=== PATIENT | female | born 2000 | race Caucasian/White ===

== ENCOUNTER 2018-01-29 23:14 | Emergency (ER) | payer OTHER ==
[2018-01-29 23:18] VITALS: BP 157/93; PULSE 108; RESP 20; TEMP 97.4; O2SAT 99
[2018-01-30] MEDS ORDERED: traMADol HCL 50 MG TAB PO ONE
[2018-01-30] MEDS ORDERED: KETOROLAC TROMETHAMINE 60 MG/2 ML (IM) VIAL IM ONE
--- NOTE | 2018-01-30 00:06 | PD ---
HPI . Abdominal pain Chief Complaint: Abdominal Pain Time Seen by Provider: 23:58 Travel History International Travel<30 days: No Contact w/Intl Traveler<30days: No Traveled to known affect area: No History of Present Illness HPI Patient presents with chief complaint of abdominal pain which started acutely 2 hours prior to presentation. Pain is severe and is exacerbated by movement and walking. She denies any associated symptoms such as nausea, vomiting, diarrhea , urinary tract symptoms, vaginal discharge or dyspareunia. She does state that she took Plan B this morning. She has eaten well today up until the time that the pain started 2 hours ago. She has not taken anything for the pain. [facility] Past Medical History Medical History: Denies Significant Hx Diminished Hearing: No Immunizations Current: Yes ?: Unknown LMP: 01/14/18 Past Surgical History Abdominal Surgery: Yes Social History Alcohol Use: Yes Tobacco Use: No Substance Use: No Allergies-Medications (Allergen,Severity, Reaction): Coded Allergies: Penicillins (Verified Allergy, Severe, 01/29/18) Review of Systems Except as stated in HPI: all other systems reviewed are Neg Physical Exam Narrative GENERAL: The patient is screaming loudly and is being carried by her boyfriend. The boyfriend actually picked her up to move her to the end of the bed for a pelvic exam. SKIN: warm/dry. HEAD: Normocephalic. Atraumatic. EYES: Pupils equal and round. No scleral icterus. No injection or drainage. ENT: No nasal bleeding or discharge. Mucous membranes pink and moist. NECK: Trachea midline. Full range of motion without pain.. CARDIOVASCULAR: Mild tachycardia. RESPIRATORY: No accessory muscle use. GASTROINTESTINAL: Diffuse abdominal tenderness. : Normal female. No discharge noted in the vaginal vault. It is difficult to determine whether or not she has any cervical motion tenderness or adnexal tenderness because she has been screaming continuously. MUSCULOSKELETAL: No obvious deformities. NEUROLOGICAL: Awake and alert. No obvious cranial nerve deficits. Motor grossly within normal limits. Normal speech. PSYCHIATRIC: Histrionic. Data Data Last Documented VS Vital Signs Date Time Temp Pulse Resp B/P (MAP) Pulse Ox O2 Delivery O2 Flow Rate FiO2 01/29/18 23:18 97.4 108 20 157/93 (114) 99 Orders Orders Gc And Chlamydia Pcr (01/29/18 23:58) Wet Prep Profile (01/29/18 23:58) Urinalysis - C+S If Indicated (01/29/18 23:58) Ed Urine Pregnancytest Poc (01/29/18 23:58) Ketorolac Inj (Toradol Inj) (01/30/18 00:00) Tramadol (Ultram) (01/30/18 00:00) Labs Laboratory Tests Test 01/29/18 23:59 01/30/18 00:00 Clue Cells (Wet Prep) NONE SEEN Vaginal Trichomonas (Wet Prep) NONE SEEN Vaginal Yeast (Wet Prep) NONE SEEN Urine Color LIGHT-YELLOW Urine Turbidity CLOUDY Urine pH 8.0 Urine Specific [place] 1.013 Urine Protein NEG mg/dL Urine Glucose (UA) NEG mg/dL Urine Ketones NEG mg/dL Urine Occult Blood NEG Urine Nitrite NEG Urine Bilirubin NEG Urine Urobilinogen LESS THAN 2.0 MG/DL Urine Leukocyte Esterase NEG Urine RBC LESS THAN 1 /hpf Urine Squamous Epithelial Cells 4 /hpf Urine Amorphous Sediment RARE Microscopic Urinalysis Comment CULT NOT INDICATED MDM Medical Decision Making Medical Screen Exam Complete: Yes Emergency Medical Condition: Yes Differential Diagnosis Differential diagnosis of abdominal pain includes but is not limited to gastritis, pancreatitis, hepatitis, gastroenteritis, constipation, urinary retention, peptic ulcer disease, diverticulitis or appendicitis Narrative Course This patient presents with the acute onset of lower abdominal pain which started 2 hours prior to presentation. She was completely asymptomatic prior to this. Pertinent history is that she took Plan B this morning. 12:20 AM This patient has been in an exam room for approximately 20-30 minutes. Her father has called to inquire as to why she has not yet received pain medication. The patient reports that she is feeling better following Toradol and Ultram. Her abdomen has been reexamined. She continues to have some tenderness in the lower abdomen but it is much improved. She looks like she feels much better. She will be discharged home with prescriptions for ibuprofen and Ultram. Diagnosis Primary Impression: Abdominal pain Qualified Codes: R10.30 - Lower abdominal pain, unspecified Patient Instructions: General Instructions, Pelvic Pain (ED) Med/Other Pt SpecificInfo: Prescription(s) given Scripts Tramadol (Ultram) 50 Mg Tab 50 MG PO Q4H Y for PAIN, #12 TAB 0 Refills Prov: Luz Elena Sarabia MD 4/17/18 Ibuprofen (Ibuprofen) 800 Mg Tab 800 MG PO Q8H Y for Pain/Inflammation, #60 TAB 0 Refills Prov: Luz Elena Sarabia MD 01/30/18 Disposition: 01 DISCHARGE HOME Condition: Stable Luz Elena Sarabia MD Jan 30, 2018 00:06
[2018-01-30 00:26] LABS: AMORPHOUS SEDIMENT, URINE RARE; BILIRUBIN, URINE NEG (NEG); BLOOD, URINE NEG (NEG); GLUCOSE,URINE NEG (NEG); KETONE, URINE NEG (NEG); NITRITE,URINE NEG (NEG); SQUAMOUS EPITHELIAL CELL URINE 4 /hpf (0-5); URINE COLOR LIGHT-YELLOW (YELLW/STRAW); URINE LEUKOCYTE ESTERASE NEG (NEG)
[2018-01-30] MEDS ORDERED: TRAM50 PO (01:01)
[2018-01-30] MEDS ORDERED: IBUP1TAB7 PO (01:01)
== END 2018-01-30 03:43 | disposition home or self-care (01) ==
LOC: NEPE 23:14
DX: R10.30 Lower abdominal pain, unspecified (principal); Z88.0 Allergy status to penicillin
CPT/HCPCS: 81001; 84703; 87210; 87491; 87591; 96372; 99284; J1885